=== PATIENT | female | born 1965 | race Caucasian/White ===

== ENCOUNTER 2017-02-14 13:47 | Emergency (ER) | payer MEDICAID, OTHER ==
[~2017-02-14] VITALS: Ht 157.5 cm; Wt 74.9 kg
[2017-02-14 13:53] VITALS: BP 123/85
[2017-02-14] MEDS ORDERED: KETOROLAC 30 MG/1 ML ONE (14:11)
[2017-02-14] MEDS ORDERED: KETOROLAC 30 MG/1 ML IM ONE (14:30)
== END 2017-02-14 15:23 | disposition home or self-care (01) ==
LOC: ED 15:06
DX: S16.1XXA Strain of muscle, fascia and tendon at neck level, initial encounter (principal); W10.9XXA Fall (on) (from) unspecified stairs and steps, initial encounter; Y93.89 Activity, other specified; Y99.8 Other external cause status; Y92.89 Other specified places as the place of occurrence of the external cause
CPT/HCPCS: 72020; 72050; 72072; 96372; 99284; J1885

== ENCOUNTER 2018-07-12 09:01 | Emergency (ER) | payer OTHER ==
[~2018-07-12] VITALS: Ht 157.5 cm; Wt 68.8 kg
[2018-07-12 09:10] VITALS: BP 136/86
[2018-07-12] MEDS ORDERED: KETOROLAC 30 MG/1 ML IM ONE (09:30)
[2018-07-12] MEDS ORDERED: KETOROLAC 30 MG/1 ML ONE ×2 (09:57→09:59)
== END 2018-07-12 10:32 | disposition home or self-care (01) ==
LOC: ED 10:27
DX: S43.401A Unspecified sprain of right shoulder joint, initial encounter (principal); W19.XXXA Unspecified fall, initial encounter; Y93.89 Activity, other specified; Y92.59 Other trade areas as the place of occurrence of the external cause; Y99.8 Other external cause status
CPT/HCPCS: 29105; 73030; 96372; 99283; J1885

== ENCOUNTER 2018-08-07 06:24 | Emergency (ER) | payer SELFPAY ==
[~2018-08-07] VITALS: Ht 157.5 cm; Wt 68.2 kg
[2018-08-07 06:28] VITALS: BP 155/90
[2018-08-07] MEDS ORDERED: FAMOTIDINE 20 MG TABLET ONE (06:58)
[2018-08-07] MEDS ORDERED: FAMOTIDINE 20 MG TABLET PO ONE (07:00)
== END 2018-08-07 07:11 | disposition home or self-care (01) ==
LOC: ED 07:05
DX: R11.2 Nausea with vomiting, unspecified (principal); F17.200 Nicotine dependence, unspecified, uncomplicated
CPT/HCPCS: 99283

== ENCOUNTER 2019-02-11 12:21 | Emergency (ER) | payer SELFPAY ==
[~2019-02-11] VITALS: Ht 160 cm; Wt 67.0 kg
[2019-02-11 12:23] VITALS: BP 157/87
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
--- NOTE | 2019-02-11 12:55 | NUR ---
PT NOT IN ROOM. FOUND PT WALKING BRISKLY TO DC AREA.
== END 2019-02-11 13:09 | disposition home or self-care (01) ==
LOC: ED 13:02
DX: K02.9 Dental caries, unspecified (principal); F17.200 Nicotine dependence, unspecified, uncomplicated
CPT/HCPCS: 99283

== ENCOUNTER 2019-03-28 16:27 | Emergency (ER) | payer SELFPAY ==
[~2019-03-28] VITALS: Ht 160 cm; Wt 79.5 kg
[2019-03-28 16:38] VITALS: BP 145/97
== END 2019-03-28 17:52 | disposition left against medical advice (07) ==
LOC: ED 16:36
DX: R55 Syncope and collapse (principal); F41.1 Generalized anxiety disorder
CPT/HCPCS: 36415; 71045; 80053; 80307; 82140; 83605; 83690; 83880; 84484; 85025; 93005; 99284

== ENCOUNTER 2020-01-13 08:42 | Emergency (ER) | payer MEDICAID ==
[~2020-01-13] VITALS: Ht 157.5 cm; Wt 71.8 kg
[2020-01-13 09:01] VITALS: BP 150/96
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
--- NOTE | 2020-01-13 10:52 | NUR ---
PT TO BE DC'D. PT DECLINED MAKING POLICE REPORT PRIOR TO LEAVING. PT STATES SHE WILL DO ON HER OWN
== END 2020-01-13 10:54 | disposition home or self-care (01) ==
LOC: ED 10:18
DX: S06.0X1A Concussion with loss of consciousness of 30 minutes or less, initial encounter (principal); M26.622 Arthralgia of left temporomandibular joint; J32.0 Chronic maxillary sinusitis; F17.200 Nicotine dependence, unspecified, uncomplicated; Y04.8XXA Assault by other bodily force, initial encounter; Y93.89 Activity, other specified; Y92.89 Other specified places as the place of occurrence of the external cause; Y99.8 Other external cause status
CPT/HCPCS: 70450; 70486; 99285

== ENCOUNTER 2020-02-24 08:53 | Emergency (ER) | payer MEDICAID ==
[~2020-02-24] VITALS: Ht 160 cm; Wt 71.0 kg
[2020-02-24 09:07] VITALS: BP 143/97
--- NOTE | 2020-02-24 09:49 | NUR ---
STAND IN: PT TO ROOM FROM BRUNILDA LINDSAY
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
--- NOTE | 2020-02-24 09:58 | NUR ---
PT TO RN STATION "I'M JUST GOING TO LEAVE. I JUST WANT SOMEONE TO TALK TO. I DON'T WANT MY HEART CHECKED OUT. I DON'T WANT TO BE HOOKED TO MONITORING. I JUST WANT TO GO HOME- THAT'S WHAT I DO. I SIT AT HOME. I JUST HAVE SEVERE DEPRESSION AND ANXIETY. I DON'T LIKE PEOPLE AND I DON'T WANT TO BE HERE". PT EDUCATED THAT SHE IS WELCOME TO LEAVE OR BE SEEN FOR HER COMPLAINT. SHE IS NOT HELD HERE AGAINST HER WILL AND THAT IF SHE CHOOSES TO STAY, WE ARE HAPPY TO TRY TO HELP HER WITH HER ANXIETY. PT HAS ELECTED TO RETURN TO ROOM TO BE SEEN BY ERP.
--- NOTE | 2020-02-24 10:05 | NUR ---
REPORT TO PRIMARY RN, CLINT
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
--- NOTE | 2020-02-24 10:50 | NUR ---
PT AWAITING BIOLOGY SPECIALIST.
--- NOTE | 2020-02-24 11:05 | NUR ---
PT NOT IN ROOM
--- NOTE | 2020-02-24 11:29 | NUR ---
PT, NOR HER BELONGINGS, NOT IN ROOM; ASSUME PT ELOPED.
== END 2020-02-24 11:41 | disposition left against medical advice (07) ==
LOC: ED 10:04
DX: F33.1 Major depressive disorder, recurrent, moderate (principal); I45.10 Unspecified right bundle-branch block
CPT/HCPCS: 93005; 99283

== ENCOUNTER 2020-03-03 07:00 | Emergency (ER) | payer MEDICAID ==
[~2020-03-03] VITALS: Ht 157.5 cm; Wt 77.0 kg
--- NOTE | 2020-03-03 07:14 | NUR ---
54 Y/O FEMALE PRESENTS TO ED WITH C/O "I TOOK SOME FAUCET POLISHER 2 PILLS. AND I FEEL AWFUL. I GOT THESE PILLS AT 7-11. SOMEONE TOLD ME TO TAKE A 5 HOUR ENERGY DRINK. I GOT THESE PILLS INSTEAD. I FEEL SHAKY AND NOT GOOD AT ALL. I TOOK TWO OF THEM AT 0345 THIS MORNING." PT PLACED ON CONT PULSE OX,NIBP. FRIEND BEDSIDE. NO C/O N/V/D, TRAUMA, SYNCOPE, CP, F/C.
[2020-03-03] MEDS ORDERED: LORazepam 1MG TABLET PO ONE (07:30)
[2020-03-03] MEDS ORDERED: LORazepam 1MG TABLET ONE (07:31)
--- NOTE | 2020-03-03 07:33 | NUR ---
in to administer medication. pt going to bathroom. pt ambulatory with steady gait to bathroom. [email or web address]
--- NOTE | 2020-03-03 07:37 | NUR ---
PT BACK FROM BATHROOM. MED ADMINISTERED. NADN. NO OTHER REQUESTS AT THIS TIME.
[2020-03-03 07:58] LABS: BASOPHILS # (AUTO) 0.05 x10^3/uL (0-0.1); BASOPHILS % (AUTO) 0 % (0-1); EOSINOPHILS # (AUTO) 0.03 x10^3/uL (0-0.4); EOSINOPHILS % (AUTO) 0 % (1-7); LYMPHOCYTES # (AUTO) 1.79 x10^3/uL (1-3.4); LYMPHOCYTES % (AUTO) 15 % (22-44); MD NO; MEAN CORPUSCULAR HEMOGLOBIN 30.6 pg (27.0-34.8); MEAN CORPUSCULAR HGB CONC 33.2 g/dL (32.4-35.8); MEAN CORPUSCULAR VOLUME 92.3 fL (80-100); MEAN PLATELET VOLUME 7.3 fL (7.4-10.4); MONOCYTES # (AUTO) 0.64 x10^3/uL (0.2-0.8); MONOCYTES % (AUTO) 5 % (2-9); NEUTROPHILS # (AUTO) 9.59 x10^3/uL (1.8-6.8); NEUTROPHILS % (AUTO) 79 % (42-75); PLATELET COUNT 330 x10^3/uL (130-400); RED CELL DISTRIBUTION WIDTH 12.9 % (9.6-15.2)
[2020-03-03 08:03] LABS: ALBUMIN 4.1 g/dL (3.4-5.0); ANION GAP 6 mmol/L (5-15); CALCIUM 8.8 mg/dL (8.5-10.1); CHLORIDE 109 mmol/L (98-107)
[2020-03-03 08:29] VITALS: BP 138/85
--- NOTE | 2020-03-03 08:29 | NUR ---
PT STATES "I FEEL SLEEPY." NADN. PT VITAL SIGNS MUCH MORE IN NORMAL LIMITS.
--- NOTE | 2020-03-03 08:43 | NUR ---
Patient/Caregiver given discharge instructions and they have confirmed that they understand the instructions. Patient ambulatory with steady gait. PT LEFT WITH ALL PERSONAL BELONGINGS.
== END 2020-03-03 08:45 | disposition home or self-care (01) ==
LOC: ED 07:43
DX: F41.1 Generalized anxiety disorder (principal); R11.0 Nausea; I21.9 Acute myocardial infarction, unspecified
CPT/HCPCS: 36415; 80048; 82040; 85025; 93005; 99284

== ENCOUNTER 2020-03-13 09:27 | Emergency (ER) | payer MEDICAID ==
[~2020-03-13] VITALS: Ht 157.5 cm; Wt 70.3 kg
[2020-03-13 09:34] VITALS: BP 142/80
[2020-03-13] MEDS ORDERED: FLUORESCEIN OPHTHALMIC 1 MG STRIP ONE (10:18)
[2020-03-13] MEDS ORDERED: PROPARACAINE OPHTH 0.5%, 15ML ONE (10:18)
== END 2020-03-13 10:51 | disposition home or self-care (01) ==
LOC: ED 10:03
DX: H10.12 Acute atopic conjunctivitis, left eye (principal); H10.232 Serous conjunctivitis, except viral, left eye; F17.200 Nicotine dependence, unspecified, uncomplicated
CPT/HCPCS: 99283

== ENCOUNTER 2020-03-13 23:20 | Emergency (ER) | payer MEDICAID ==
[~2020-03-13] VITALS: Ht 157.5 cm; Wt 70.4 kg
[2020-03-13 23:36] VITALS: BP 165/66
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
--- NOTE | 2020-03-14 00:25 | NUR ---
PATIENT IS RESTLESS, CONTINUES TO GO UP TO THE DOOR AND DEMANDING TO SEE A DOCTOR FOR HER MINOR SCRAPE ON HER KNEE. RN EXPLAINED TO PATIENT THAT A PROVIDER HAS SEEN AND EVALUATED PATIENT. PATIENT IS STEADILY AMBULATING IN ROOM. RN OFFERED TO CLEAN PATIENTS KNEE, PATIENT REFUSED. KNEE HAS A SMALL SCRAPE ON IT, NOT ACTIVELY BLEEDING. PATIENT CONTINUES TO GO ON RANTS IN THE ROOM, RN ATTTEMPTING TO CALM PATIENT. SITTER REMAINS OUTSIDE OF ROOM
--- NOTE | 2020-03-14 01:17 | NUR ---
PATIENT CONTINUES TO BE EMOTIONAL BUT SHE IS MORE COOPERATIVE WITH STAFF SHE IS UTD ON PLAN
--- NOTE | 2020-03-14 02:49 | NUR ---
PATIENTS BREATHLYZER IS 0.016. PATIENT CONTINUES TO DENY SI/HI
--- NOTE | 2020-03-14 03:10 | NUR ---
PATIENT STEADILY AMBULATED OUT OF EMERGENCY ROOM
== END 2020-03-14 03:12 | disposition home or self-care (01) ==
LOC: ED 23:50
DX: F10.120 Alcohol abuse with intoxication, uncomplicated (principal); R00.0 Tachycardia, unspecified; H57.10 Ocular pain, unspecified eye; Y90.9 Presence of alcohol in blood, level not specified
CPT/HCPCS: 99283

== ENCOUNTER 2020-12-13 16:04 | Emergency (ER) | payer MEDICAID ==
[~2020-12-13] VITALS: Ht 160 cm; Wt 76.0 kg
--- NOTE | 2020-12-13 16:12 | NUR ---
triage: abdominal pain and bloating one month
[2020-12-13] MEDS ORDERED: SODIUM CHLORIDE FLUSH 10ML SYR IVF ONE (16:30)
[2020-12-13] MEDS ORDERED: ONDANSETRON 2MG/ML, 2ML IVPush ONE (16:30)
[2020-12-13] MEDS ORDERED: MORPHINE SULFATE 4 MG/ML, 1ML ONE ×2 (16:45→19:05)
[2020-12-13] MEDS ORDERED: ONDANSETRON 2MG/ML, 2ML ONE (16:45)
[2020-12-13] MEDS: MORPHINE SULFATE 4 MG/ML, 1ML IVPush PRN ×2 (16:48→19:10)
--- NOTE | 2020-12-13 16:50 | NUR ---
MEDICATED. DENIES HOME MEDS
[2020-12-13 16:55] LABS: BASOPHILS % (AUTO) 1 % (0-1); EOSINOPHILS % (AUTO) 1 % (1-7); LYMPHOCYTES % (AUTO) 20 % (22-44); MEAN CORPUSCULAR HEMOGLOBIN 30.9 pg (27.0-34.8); MEAN CORPUSCULAR HGB CONC 33.8 g/dL (32.4-35.8); MEAN PLATELET VOLUME 7.2 fL (7.4-10.4); MONOCYTES % (AUTO) 7 % (2-9); NEUTROPHILS % (AUTO) 72 % (42-75); PLATELET COUNT 329 x10^3/uL (130-400); RED BLOOD COUNT 4.91 x10^6/uL (3.82-5.3)
[2020-12-13 16:59] LABS: MD NO
[2020-12-13 17:07] LABS: ALANINE AMINOTRANSFERASE 21 U/L (12-78); ALBUMIN 3.7 g/dL (3.4-5.0); ANION GAP 5 mmol/L (5-15); CALCIUM 8.6 mg/dL (8.5-10.1); CHLORIDE 107 mmol/L (98-107); CREATININE 0.87 mg/dL (0.55-1.02)
[2020-12-13 17:10] LABS: ALKALINE PHOSPHATASE 117 U/L (45-117); BILIRUBIN,TOTAL 0.4 mg/dL (0.2-1.0); TOTAL PROTEIN 7.1 g/dL (6.4-8.2)
[2020-12-13 18:12] LABS: MICROSCOPIC AUTO
--- NOTE | 2020-12-13 18:34 | NUR ---
PT AMBULATING TO BATHROOM, STEADY GAIT
--- NOTE | 2020-12-13 19:00 | NUR ---
RECEIVED REPORT FROM MATTHEW GUZMAN AND MATTHEW KLEIN TO ASSUME CARE OF PT. AT THIS TIME.
--- NOTE | 2020-12-13 19:01 | NUR ---
PT. RESTING ON GURNEY, C/O ABD PAIN 12/26. PT. TO HAVE CT DONE.
--- NOTE | 2020-12-13 19:10 | NUR ---
PT. MEDICATED PER OCT. TO CT VIA [facility].
[2020-12-13] MEDS ORDERED: OMNIPAQUE 350 MG/ML, 100ML BOTTLE ONE (19:23)
[2020-12-13 19:47] VITALS: BP 142/90
--- NOTE | 2020-12-13 20:01 | NUR ---
PT. CHART UP FOR REHCECK BY ERP. PT. AMBULATED TO BR AND BACK TO ROOM WITH STEADY GAIT. NO DISTRESS NOTED.
--- NOTE | 2020-12-13 20:28 | NUR ---
PT. PROVIDED WITH WATER AFTER OK FROM PA. SAVANNAH NUÑEZ IN TO DISCUSS PLAN FOR D/C FLORES PT.
== END 2020-12-13 20:38 | disposition home or self-care (01) ==
LOC: ED 16:34
DX: G89.29 Other chronic pain (principal); R10.84 Generalized abdominal pain; R11.2 Nausea with vomiting, unspecified; R19.7 Diarrhea, unspecified; F17.210 Nicotine dependence, cigarettes, uncomplicated
CPT/HCPCS: 36415; 74177; 76700; 80053; 81001; 83690; 85025; 96374; 96375; 96376; 99285; J2270; J2405; Q9967

== ENCOUNTER 2021-04-14 11:26 | Emergency (ER) | payer MEDICAID ==
[~2021-04-14] VITALS: Ht 160 cm; Wt 71.0 kg
[2021-04-14 11:28] VITALS: BP 116/80
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
--- NOTE | 2021-04-14 11:57 | NUR ---
PT LEFT WITHOUT BEING SEEN X 2
== END 2021-04-14 11:58 | disposition left against medical advice (07) ==
LOC: ED 11:35
DX: R51.9 Headache, unspecified (principal); Z53.21 Procedure and treatment not carried out due to patient leaving prior to being seen by health care provider